=== PATIENT | male | born 1955 | race Caucasian/White ===

== ENCOUNTER 2020-02-07 10:01 | Emergency (ER) | payer MEDICARE, OTHER ==
[~2020-02-07] VITALS: Ht 190.5 cm; Wt 111.1 kg
[~2020-02-07 10:01] MED LIST: ASPI81CH43 PO; GABA300C10 PO; HYDR-2549 PO; HYDR12.56 PO; LISI-646 PO; METF-372 PO; OMEP20CA74 PO; ROSU40TA PO; TRAM50TA2 PO; ZOLP5TAB5 PO
[2020-02-07 11:15] VITALS: BP 159/86
== END 2020-02-07 12:08 | disposition home or self-care (01) ==
LOC: ER 10:01
DX: M54.12 Radiculopathy, cervical region (principal); M25.511 Pain in right shoulder
CPT/HCPCS: 72040; 93005

== ENCOUNTER 2021-01-24 09:20 | Emergency (ER) | payer MEDICARE, OTHER ==
[~2021-01-24] VITALS: Ht 190.5 cm; Wt 111.1 kg
[~2021-01-24 09:20] MED LIST changes: -LISI-646 PO; +LISI20TA28 PO
[2021-01-24 09:26] VITALS: BP 106/70
[2021-01-24 12:05] LABS: Basophils # (auto) 0 10 ^3/uL (0-0.2); Basophils % (auto) 0.4 % (0.0-2.0); Eosinophils # (auto) 0.1 10 ^3/uL (0-0.8); Eosinophils % (auto) 0.7 % (0.0-7.0); Hematocrit 46.2 % (41.0-53.0); Hemoglobin 16.2 g/dL (13.5-17.5); Lymphocytes % (auto) 21.8 % (10.0-50.0); Mean Corpuscular Hemoglobin 33.4 pg (28.0-32.0); Mean Corpuscular Volume 95.4 fL (80.0-100.0); Monocytes # (auto) 0.8 10 ^3/uL (0-1.3); Monocytes % (auto) 8.8 % (0.0-12.0); Neutrophils # (auto) 6.3 10 ^3/uL (1.6-8.6); Neutrophils % (auto) 68.3 % (37.0-80.0); Nucleated Red Blood Cells % 0.1 %; Red Blood Cells 4.85 10^6/uL (4.5-5.90); Red Cell Distribution Width 15.7 % (11.8-14.3); White Blood Cell 9.2 10^3/uL (4.4-10.8)
[2021-01-24 12:36] LABS: Potassium 3.9 mmol/L (3.5-5.1)
[2021-01-24 12:43] LABS: BUN/Creatinine Ratio 6.9; Bilirubin, Total 0.5 mg/dL (0.2-1.0); Calcium 8.8 mg/dL (8.5-10.1)
== END 2021-01-24 14:14 | disposition home or self-care (01) ==
LOC: ER 09:20
DX: K57.32 Diverticulitis of large intestine without perforation or abscess without bleeding (principal); N20.0 Calculus of kidney; R16.0 Hepatomegaly, not elsewhere classified; I10 Essential (primary) hypertension; E11.9 Type 2 diabetes mellitus without complications; I25.2 Old myocardial infarction; J44.9 Chronic obstructive pulmonary disease, unspecified; F17.210 Nicotine dependence, cigarettes, uncomplicated; Z79.899 Other long term (current) drug therapy
CPT/HCPCS: 36415; 74176; 74177; 80053; 85025

== ENCOUNTER 2021-01-30 12:34 | Inpatient (IN) | payer OTHER, MEDICARE ==
[~2021-01-30] VITALS: Ht 190.5 cm; Wt 112.8 kg
[2021-01-30] MEDS ORDERED: SODIUM CHLORIDE 0.9% 500 ML IV ONE (13:15)
[2021-01-30 13:41] LABS: Basophils # (auto) 0.1 10 ^3/uL (0-0.2); Basophils % (auto) 0.5 % (0.0-2.0); Eosinophils # (auto) 0 10 ^3/uL (0-0.8); Eosinophils % (auto) 0.3 % (0.0-7.0); Hematocrit 45.6 % (41.0-53.0); Hemoglobin 15.7 g/dL (13.5-17.5); Lymphocytes # (auto) 2.2 10 ^3/uL (0.4-5.4); Lymphocytes % (auto) 19.5 % (10.0-50.0); Mean Corpuscular Hemoglobin 33.5 pg (28.0-32.0); Mean Corpuscular Hgb Conc. 34.5 g/dL (32.0-36.0); Mean Corpuscular Volume 96.9 fL (80.0-100.0); Monocytes # (auto) 1.1 10 ^3/uL (0-1.3); Monocytes % (auto) 9.6 % (0.0-12.0); Neutrophils # (auto) 7.9 10 ^3/uL (1.6-8.6); Neutrophils % (auto) 70.1 % (37.0-80.0); Nucleated Red Blood Cells % 0.1 %; Red Cell Distribution Width 16.1 % (11.8-14.3); White Blood Cell 11.3 10^3/uL (4.4-10.8)
[2021-01-30 13:59] LABS: Albumin 3.8 g/dL (3.4-5.0); Anion Gap 16 (5-15); Blood Urea Nitrogen 37 mg/dL (7-18); Calcium 8.8 mg/dL (8.5-10.1); Carbon Dioxide 17 mmol/L (21-32); Chloride 99 mmol/L (98-107); Glucose 85 mg/dL (74-106); Magnesium 1.2 mg/dL (1.6-2.6); Potassium 5.5 mmol/L (3.5-5.1); Sodium 132 mmol/L (136-145)
[2021-01-30 14:03] LABS: Alanine Aminotransferase 28 U/L (16-61); Alkaline Phosphatase 65 U/L (45-117); Aspartate Aminotransferase 14 U/L (15-37); BUN/Creatinine Ratio 3.7; Bilirubin, Total 0.6 mg/dL (0.2-1.0); GFR African American 7 mL/min; GFR Non-African American 6 mL/min; Total Protein 8.5 g/dL (6.4-8.2)
[2021-01-30 15:23] LABS: Urine Bacteria FEW /hpf (None Seen); Urine Blood TRACE /uL (Negative); Urine Hyaline Cast FEW /lpf (0 - 2); Urine Mucus FEW (None Seen); Urine Specific Gravity 1.027 (1.001-1.035); Urine WBC 7 /hpf (0 - 3)
[2021-01-30] MEDS ORDERED: cefTRIAXone 1GM/50ML D5W 50 ML IV ONE (15:45)
[2021-01-30] MEDS ORDERED: NOREPINEPHRINE 8 MG/250ML KIT 250 ML IV SCH (17:15)
[2021-01-30] MEDS ORDERED: NOREPINEPHRINE 8 MG/250ML KIT 250 ML IV ONE (17:20)
[2021-01-30] MEDS: NOREPINEPHRINE 8 MG/250ML KIT 250 ML IV SCH ×2 (17:45→18:15)
[2021-01-30] MEDS ORDERED: DEXTROSE (50%) 50ML SYRG IV PRN (18:15)
[2021-01-30] MEDS ORDERED: MORPHINE SULF INJ 2 MG/ML SYRINGE 1ML IV PRN (18:15)
[2021-01-30] MEDS ORDERED: ACETAMINOPHEN 500 MG TAB PO PRN (18:15)
[2021-01-30] MEDS ORDERED: NITROGLYCERIN 0.4 MG SL TAB SL PRN (18:15)
[2021-01-30] MEDS ORDERED: ALBUTEROL SULF 2.5 MG/0.5ML(0.5%) NEB SOLN NEB ONE (18:30)
[2021-01-30] MEDS ORDERED: ALBUTEROL SULF 2.5 MG/0.5ML(0.5%) NEB SOLN ONE (18:31)
[2021-01-30 21:56] LABS: Creatinine, Urine 199 mg/dL (30.0-125.0); Sodium Urine 12 mmol/L (40-220)
[2021-01-30] MEDS ORDERED: GABAPENTIN 300 MG CAP PO SCH (22:00)
[2021-01-30] MEDS: SODIUM BICARBONATE 50ML VIAL 50 ML in SOD CHL 0.45% 1,000 ML IV SCH (22:49)
[2021-01-30] MEDS: ACCU-CHEK COMFORT CURVE STRIP VI SCH (22:49)
[2021-01-30] MEDS: InsuLIN REG 1unit/0.01ml Soln (100units/ml) SC SCH (22:50)
[2021-01-31] MEDS: NOREPINEPHRINE 8 MG/250ML KIT 250 ML IV SCH ×2 (05:24→20:18)
[2021-01-31] MEDS: InsuLIN REG 1unit/0.01ml Soln (100units/ml) SC SCH ×4 (06:40→22:17)
[2021-01-31] MEDS: ACCU-CHEK COMFORT CURVE STRIP VI SCH ×4 (06:41→22:17)
[2021-01-31 06:52] LABS: Eosinophils # (auto) 0.1 10 ^3/uL (0-0.8); Lymphocytes # (auto) 1.6 10 ^3/uL (0.4-5.4); Monocytes # (auto) 1.6 10 ^3/uL (0-1.3)
[2021-01-31 06:54] LABS: Basophils # (auto) 0 10 ^3/uL (0-0.2); Basophils % (auto) 0.4 % (0.0-2.0); Eosinophils % (auto) 0.5 % (0.0-7.0); Hematocrit 42.7 % (41.0-53.0); Hemoglobin 14.9 g/dL (13.5-17.5); Lymphocytes % (auto) 14.6 % (10.0-50.0); Mean Corpuscular Hgb Conc. 34.8 g/dL (32.0-36.0); Mean Corpuscular Volume 97.6 fL (80.0-100.0); Monocytes % (auto) 14.4 % (0.0-12.0); Neutrophils # (auto) 7.9 10 ^3/uL (1.6-8.6); Neutrophils % (auto) 70.1 % (37.0-80.0); Red Blood Cells 4.37 10^6/uL (4.5-5.90); White Blood Cell 11.3 10^3/uL (4.4-10.8)
[2021-01-31 07:20] LABS: Calcium 7.7 mg/dL (8.5-10.1); Potassium 5.3 mmol/L (3.5-5.1)
[2021-01-31 07:22] LABS: BUN/Creatinine Ratio 4.3
[2021-01-31] MEDS: SODIUM BICARBONATE 50ML VIAL 50 ML in SOD CHL 0.45% 1,000 ML IV SCH ×2 (07:59→15:23)
[2021-01-31] MEDS: cefTRIAXone 1GM/50ML D5W 50 ML IV SCH (09:49)
[2021-01-31] MEDS: ASPirin 81 mg TAB PO SCH (09:49)
[2021-01-31 10:10] LABS: Alcohol, Urine < 3.0 mg/dL (0-10); Amphetamine Screen, Urine NEGATIVE (NEGATIVE); Barbiturate Scree,Urine NEGATIVE (NEGATIVE); Benzodiazephine Screen, Urine NEGATIVE (NEGATIVE); Cannabinoid Screen, Urine NEGATIVE (NEGATIVE); Cocaine Screen, Urine NEGATIVE (NEGATIVE); Opiate Scree,Urine NEGATIVE (NEGATIVE); Phencyclidine Screen, Urine NEGATIVE (NEGATIVE)
[2021-01-31] MEDS ORDERED: VARE1TAB PO (11:48)
[2021-01-31] MEDS ORDERED: TRAZ-181 PO (11:48)
[2021-01-31] MEDS ORDERED: METH750T22 PO (11:48)
[2021-01-31] MEDS ORDERED: OMEP-263 PO (11:48)
[2021-01-31] MEDS: SEVELAMER 800 MG TAB PO SCH ×2 (13:15→18:41)
[2021-01-31] MEDS ORDERED: NITR0.4S29 SL (14:21)
[2021-01-31] MEDS ORDERED: SODIUM CHLORIDE 0.9% 1,000 ML IV ONE (20:15)
[2021-02-01] MEDS ORDERED: SODIUM BICARBONATE 8.4% INJ 50ML SYRINGE ONE (02:36)
[2021-02-01] MEDS: SODIUM BICARBONATE 50ML VIAL 50 ML in SOD CHL 0.45% 1,000 ML IV SCH (03:17)
[2021-02-01 07:04] LABS: Basophils # (auto) 0 10 ^3/uL (0-0.2); Basophils % (auto) 0.3 % (0.0-2.0); Eosinophils # (auto) 0.1 10 ^3/uL (0-0.8); Eosinophils % (auto) 1.2 % (0.0-7.0); Hemoglobin 14.1 g/dL (13.5-17.5); Lymphocytes # (auto) 1.2 10 ^3/uL (0.4-5.4); Lymphocytes % (auto) 14.8 % (10.0-50.0); Mean Corpuscular Hgb Conc. 35.3 g/dL (32.0-36.0); Mean Corpuscular Volume 96.4 fL (80.0-100.0); Monocytes # (auto) 0.8 10 ^3/uL (0-1.3); Monocytes % (auto) 10.5 % (0.0-12.0); Neutrophils # (auto) 5.9 10 ^3/uL (1.6-8.6); Neutrophils % (auto) 73.2 % (37.0-80.0); Red Blood Cells 4.15 10^6/uL (4.5-5.90); Red Cell Distribution Width 15.7 % (11.8-14.3)
[2021-02-01] MEDS: ACCU-CHEK COMFORT CURVE STRIP VI SCH ×4 (07:09→23:00)
[2021-02-01 07:23] LABS: Calcium 7.9 mg/dL (8.5-10.1); Potassium 4.2 mmol/L (3.5-5.1)
[2021-02-01 07:26] LABS: BUN/Creatinine Ratio 7.9
[2021-02-01] MEDS: InsuLIN REG 1unit/0.01ml Soln (100units/ml) SC SCH ×4 (07:30→23:00)
[2021-02-01] MEDS: LACTATED RINGER'S 1,000 ML IV SCH ×2 (09:28→17:07)
[2021-02-01] MEDS: cefTRIAXone 1GM/50ML D5W 50 ML IV SCH (09:28)
[2021-02-01] MEDS: SEVELAMER 800 MG TAB PO SCH ×3 (09:28→18:37)
[2021-02-01] MEDS: ASPirin 81 mg TAB PO SCH (09:29)
[2021-02-01] MEDS ORDERED: SODIUM CHLORIDE 0.9% 500 ML IV ONE (13:00)
[2021-02-01 21:40] VITALS: BP 131/65
[2021-02-01] MEDS: MORPHINE SULF INJ 2 MG/ML SYRINGE 1ML IV PRN (23:00)
[2021-02-02] MEDS ORDERED: PNEUMOCOCCAL VACC POLYS 25 MCG/0.5 ML VIAL IM ONE (01:15)
[2021-02-02] MEDS: traMADol HCL 50 MG TAB PO PRN ×2 (02:24→15:13)
[2021-02-02 05:00] VITALS: BP 131/73
[2021-02-02] MEDS: MORPHINE SULF INJ 2 MG/ML SYRINGE 1ML IV PRN ×3 (06:00→20:30)
[2021-02-02] MEDS: InsuLIN REG 1unit/0.01ml Soln (100units/ml) SC SCH ×4 (06:08→21:45)
[2021-02-02] MEDS: ACCU-CHEK COMFORT CURVE STRIP VI SCH ×4 (06:08→21:44)
[2021-02-02] MEDS: LACTATED RINGER'S 1,000 ML IV SCH ×4 (06:15→22:41)
[2021-02-02 07:59] LABS: Calcium 7.2 mg/dL (8.5-10.1); Potassium 3.8 mmol/L (3.5-5.1)
[2021-02-02 08:01] LABS: BUN/Creatinine Ratio 11.2
[2021-02-02] MEDS: cefTRIAXone 1GM/50ML D5W 50 ML IV SCH (08:53)
[2021-02-02] MEDS: SEVELAMER 800 MG TAB PO SCH ×3 (08:53→17:52)
[2021-02-02 09:00] VITALS: BP 125/71
[2021-02-02] MEDS ORDERED: LACTATED RINGER'S 1,000 ML IV ONE (09:15)
[2021-02-02] MEDS: ASPirin 81 mg TAB PO SCH (09:49)
[2021-02-02 13:00] VITALS: BP 129/74
[2021-02-02] MEDS ORDERED: APIXABAN 5 MG TAB PO ONE (13:00)
[2021-02-02 16:41] VITALS: BP 143/84
[2021-02-02] MEDS: APIXABAN 5 MG TAB PO SCH (21:53)
[2021-02-02 22:00] VITALS: BP 111/64
[2021-02-02] MEDS ORDERED: ONDANSETRON HCL 4 MG/2 ML VIAL IV PRN (23:45)
[2021-02-03 05:00] VITALS: BP 137/78
[2021-02-03] MEDS: InsuLIN REG 1unit/0.01ml Soln (100units/ml) SC SCH ×4 (06:41→22:00)
[2021-02-03] MEDS: ACCU-CHEK COMFORT CURVE STRIP VI SCH ×4 (06:41→22:09)
[2021-02-03] MEDS: MORPHINE SULF INJ 2 MG/ML SYRINGE 1ML IV PRN ×3 (06:42→20:20)
[2021-02-03 07:57] LABS: BUN/Creatinine Ratio 9.3; Calcium 7.4 mg/dL (8.5-10.1); Potassium 3.5 mmol/L (3.5-5.1)
[2021-02-03] MEDS: SEVELAMER 800 MG TAB PO SCH (08:28)
[2021-02-03 09:00] VITALS: BP 114/71
[2021-02-03] MEDS: LACTATED RINGER'S 1,000 ML IV SCH ×3 (09:30→23:45)
[2021-02-03] MEDS: APIXABAN 5 MG TAB PO SCH ×2 (09:35→22:09)
[2021-02-03] MEDS: ASPirin 81 mg TAB PO SCH (09:36)
[2021-02-03] MEDS: traMADol HCL 50 MG TAB PO PRN (09:44)
[2021-02-03] MEDS: HYDROcodone-ACET 5/325MG TAB PO PRN (12:46)
[2021-02-03 13:00] VITALS: BP 125/70
[2021-02-03 16:56] VITALS: BP 140/80
[2021-02-03 21:52] VITALS: BP 126/74
[2021-02-04] MEDS: HYDROcodone-ACET 5/325MG TAB PO PRN (00:45)
[2021-02-04] MEDS: MORPHINE SULF INJ 2 MG/ML SYRINGE 1ML IV PRN ×2 (04:05→08:44)
[2021-02-04 05:00] VITALS: BP_SYST 123; BP_SYST 139; BP_DIAS 72; BP_DIAS 73
[2021-02-04] MEDS: InsuLIN REG 1unit/0.01ml Soln (100units/ml) SC SCH ×2 (06:35→11:20)
[2021-02-04] MEDS: ACCU-CHEK COMFORT CURVE STRIP VI SCH ×2 (06:35→11:20)
[2021-02-04] MEDS: LACTATED RINGER'S 1,000 ML IV SCH (07:45)
[2021-02-04] MEDS: APIXABAN 5 MG TAB PO SCH (08:43)
[2021-02-04] MEDS: ASPirin 81 mg TAB PO SCH (08:43)
[2021-02-04 09:00] VITALS: BP 121/64
[2021-02-04] MEDS ORDERED: AMLO-483 PO (09:49)
[2021-02-04 12:40] VITALS: BP 121/64
[2021-02-09] MEDS ORDERED: APIXABAN 5 MG TAB PO SCH (10:00)
== END 2021-02-04 13:46 | disposition home or self-care (01) | DRG 698 ==
LOC: ER 12:34 → TELE 18:22 → TELE-CENTR 02-01 21:48
PROVIDERS: ADMIT Nurse Practitioner Acute Care; ATTEND Internal Medicine
PROC: 05HC33Z Insertion of Infusion Device into Left Basilic Vein, Percutaneous Approach (ICD-10-PCS; principal; 2021-01-31)
PROC: B54NZZA Ultrasonography of Left Upper Extremity Veins, Guidance (ICD-10-PCS; 2021-01-31)
DX: N14.1 Nephropathy induced by other drugs, medicaments and biological substances (principal); R57.1 Hypovolemic shock; I82.A12 Acute embolism and thrombosis of left axillary vein; N17.9 Acute kidney failure, unspecified; D64.9 Anemia, unspecified; E78.5 Hyperlipidemia, unspecified; E87.5 Hyperkalemia; F17.210 Nicotine dependence, cigarettes, uncomplicated; I25.10 Atherosclerotic heart disease of native coronary artery without angina pectoris; I10 Essential (primary) hypertension; J44.9 Chronic obstructive pulmonary disease, unspecified; N20.0 Calculus of kidney; E11.21 Type 2 diabetes mellitus with diabetic nephropathy; K57.90 Diverticulosis of intestine, part unspecified, without perforation or abscess without bleeding; Z20.822 Contact with and (suspected) exposure to COVID-19; T50.8X5A Adverse effect of diagnostic agents, initial encounter; K76.0 Fatty (change of) liver, not elsewhere classified; Y92.89 Other specified places as the place of occurrence of the external cause; Z79.899 Other long term (current) drug therapy; Z80.9 Family history of malignant neoplasm, unspecified; Z86.73 Personal history of transient ischemic attack (TIA), and cerebral infarction without residual deficits; Z95.1 Presence of aortocoronary bypass graft; Z79.4 Long term (current) use of insulin
CPT/HCPCS: 36415; 71045; 76775; 80048; 80053; 80307; 81001; 82570; 82962; 83036; 83735; 84100; 84300; 84484; 85025; 87040; 87086; 87426; 93005; 93971; 94640; 96361; 96365; 99291; G0378; J0696; J1815; J2405

== ENCOUNTER 2021-06-14 10:32 | Emergency (ER) | payer OTHER, MEDICARE ==
[~2021-06-14] VITALS: Ht 190.5 cm; Wt 108.9 kg
[~2021-06-14 10:32] MED LIST changes: +AMLO-483 PO; -ASPI81CH43 PO; -HYDR12.56 PO; -LISI20TA28 PO; -METF-372 PO; +METH750T22 PO; +NITR0.4S29 SL; +OMEP-263 PO; -OMEP20CA74 PO; -TRAM50TA2 PO; +TRAZ-181 PO; +VARE1TAB PO
[2021-06-14 11:40] VITALS: BP 121/81
== END 2021-06-14 12:54 | disposition home or self-care (01) ==
LOC: ER 10:32
DX: H66.91 Otitis media, unspecified, right ear (principal); I25.2 Old myocardial infarction; J44.9 Chronic obstructive pulmonary disease, unspecified; I12.9 Hypertensive chronic kidney disease with stage 1 through stage 4 chronic kidney disease, or unspecified chronic kidney disease; E11.22 Type 2 diabetes mellitus with diabetic chronic kidney disease; N18.9 Chronic kidney disease, unspecified; F17.210 Nicotine dependence, cigarettes, uncomplicated; Z86.73 Personal history of transient ischemic attack (TIA), and cerebral infarction without residual deficits; Z95.1 Presence of aortocoronary bypass graft; Z79.899 Other long term (current) drug therapy